=== PATIENT | female | born 1955 | race African-American/Black ===

== ENCOUNTER 2017-06-02 00:15 | Emergency (ER) | payer OTHER ==
[2017-06-02 00:24] VITALS: BP 153/95; PULSE 90; TEMP 98.6; BMI 27.6
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
== END 2017-06-02 02:23 | disposition home or self-care (01) ==
LOC: JER 00:15
DX: M25.551 Pain in right hip (principal); M54.5 Low back pain; M79.604 Pain in right leg; V43.52XA Car driver injured in collision with other type car in traffic accident, initial encounter; Y93.89 Activity, other specified; Y92.414 Local residential or business street as the place of occurrence of the external cause
CPT/HCPCS: 73523-TC; 99281-25